=== PATIENT | female | born 1990 | race Caucasian/White ===

== ENCOUNTER → 2018-09-24 | Outpatient (CLI) | payer OTHER ==
--- NOTE | 2018-09-24 16:14 | RAD ---
EXAM: Obstetrics sonogram. HISTORY: Spotting. TECHNIQUE: Sonographic imaging of a gravid uterus was performed. COMPARISON: None. FINDINGS: There is a single intrauterine gestational sac with pole and yolk sac. The crown-rump length is 1.37 cm, corresponding with a gestational age of 7 weeks and 5 days. Based on ultrasound measurements is 05/08/2019. The heart rate is 160 bpm. The ovaries are normal in size and demonstrate normal blood flow. There is a suspected 2.1 cm right corpus luteum cyst. The gestational sac is normal in configuration. No subchronic hematoma is seen. IMPRESSION: 1. Single intrauterine fetus with an estimated gestational age of 7 weeks and 5 days and heart rate of 160 bpm. 2. Suspected 2.1 cm right corpus luteum cyst. Electronically signed by: Jade Mayfield MD (09/24/2018 4:11 PM) [id number]
== END | disposition home or self-care (01) ==
LOC: US 14:45 → EDSEX 14:45
PROVIDERS: ATTEND Family Medicine
DX: O26.851 Spotting complicating pregnancy, first trimester (principal); Z3A.08 8 weeks gestation of pregnancy
CPT/HCPCS: 76801